=== PATIENT | male | born 1960 | race Caucasian/White ===

== ENCOUNTER → 2017-01-12 | Outpatient (CLI) | payer BC ==
[~2017-01-12] MED LIST: ASPIRIN E.C. 8181 MG PO; CELEXA20 MG PO; CELEXA40 MG PO; LIPITOR20 MG PO; LIPITOR40 MG PO; MULTIPLE VITAMI1 TAB PO; NICODERM C21 MG/PATC TOP; PRILOSEC 10MG C10 MG PO; PRILOSEC 20MG20 MG PO
== END ==
LOC: COL.RAD 15:30
DX: R10.13 Epigastric pain (principal); Z90.49 Acquired absence of other specified parts of digestive tract
CPT/HCPCS: Q9967

== ENCOUNTER 2017-07-21 08:25 | Outpatient (RCR) | payer OTHER | END 2017-07-27 14:39 | disposition still patient (30) | LOC: WSOH 08:25 | DX: S67.191A Crushing injury of left index finger, initial encounter (principal); W23.0XXA Caught, crushed, jammed, or pinched between moving objects, initial encounter; Y99.0 Civilian activity done for income or pay ==

== ENCOUNTER 2017-08-19 08:00 | Outpatient (RCR) | payer OTHER | END 2017-08-19 08:57 | disposition home or self-care (01) | LOC: WSOT 08:00 | DX: M25.642 Stiffness of left hand, not elsewhere classified (principal) ==

== ENCOUNTER → 2017-11-09 | Outpatient (CLI) | payer BC ==
[~2017-11-09] VITALS: Ht 185.4 cm; Wt 88.6 kg
[~2017-11-09] MED LIST changes: +LEXAPRO 10MG10 MG PO; +MYRBETR50MG PO
[2017-11-09 13:31] VITALS: BP 124/88; PULSE 89
[2017-11-09 14:56] VITALS: BP 127/86; PULSE 78
== END ==
LOC: COL.RAD 12:51
DX: M99.83 Other biomechanical lesions of lumbar region (principal)
CPT/HCPCS: J3301

== ENCOUNTER → 2018-03-26 | Outpatient (CLI) | payer BC | LOC: COL.RAD 07:16 | DX: D18.09 Hemangioma of other sites (principal); K76.89 Other specified diseases of liver; Z90.49 Acquired absence of other specified parts of digestive tract; M47.895 Other spondylosis, thoracolumbar region | CPT/HCPCS: Q9967 ==

== ENCOUNTER → 2018-08-19 | Outpatient (CLI) | payer BC ==
[~2018-08-19] VITALS: Ht 185.4 cm; Wt 85.8 kg
[2018-08-19 06:57] VITALS: BP 116/74; PULSE 64
[2018-08-19 07:58] VITALS: BP 122/71; PULSE 63
== END ==
LOC: COL.RAD 06:30
DX: M48.061 Spinal stenosis, lumbar region without neurogenic claudication (principal)
CPT/HCPCS: J3301

== ENCOUNTER → 2018-10-04 | Outpatient (CLI) | payer OTHER | LOC: COL.RAD 10:15 | DX: S83.241A Other tear of medial meniscus, current injury, right knee, initial encounter (principal); S83.411A Sprain of medial collateral ligament of right knee, initial encounter; M25.461 Effusion, right knee ==

== ENCOUNTER 2018-10-07 13:16 | Outpatient (RCR) | payer OTHER | END 2018-12-22 | disposition home or self-care (01) | LOC: WSOH | DX: M25.561 Pain in right knee (principal); W00.0XXA Fall on same level due to ice and snow, initial encounter; Y93.H1 Activity, digging, shoveling and raking; Y92.214 College as the place of occurrence of the external cause; Y99.0 Civilian activity done for income or pay; F17.210 Nicotine dependence, cigarettes, uncomplicated; Z79.1 Long term (current) use of non-steroidal anti-inflammatories (NSAID); Z79.899 Other long term (current) drug therapy ==

== ENCOUNTER 2018-12-03 13:00 | Outpatient (RCR) | payer OTHER | END 2018-12-09 12:22 | disposition home or self-care (01) | LOC: WSPT 13:00 | DX: S83.241A Other tear of medial meniscus, current injury, right knee, initial encounter (principal); Z96.651 Presence of right artificial knee joint ==

== ENCOUNTER → 2019-06-14 | Outpatient (CLI) | payer BC ==
[~2019-06-14] VITALS: Ht 185.4 cm; Wt 87.4 kg
[2019-06-14 07:27] VITALS: BP 137/87; PULSE 71
[2019-06-14 08:35] VITALS: BP 134/92; PULSE 71
== END ==
LOC: COL.RAD 07:00
DX: M47.816 Spondylosis without myelopathy or radiculopathy, lumbar region (principal)
CPT/HCPCS: J3301

== ENCOUNTER → 2019-10-03 | Outpatient (CLI) | payer BC | LOC: COL.PUL 07:35 | DX: J43.9 Emphysema, unspecified (principal) ==

== ENCOUNTER 2019-10-04 14:26 | Outpatient (RCR) | payer OTHER ==
[2020-01-26] MEDS ORDERED: FENTANYL 25 MCG TD (10:25)
[2020-01-26] MEDS ORDERED: ATIVAN 0.50.5 MG/TAB PO (10:26)
[2020-01-26] MEDS ORDERED: NORCO 325 MG-51 TAB PO (10:29)
== END 2019-12-27 13:14 | disposition home or self-care (01) ==
LOC: WSOH 14:26
DX: L03.90 Cellulitis, unspecified (principal); F32.9 Major depressive disorder, single episode, unspecified; E78.00 Pure hypercholesterolemia, unspecified; K21.9 Gastro-esophageal reflux disease without esophagitis; Z90.49 Acquired absence of other specified parts of digestive tract; Z98.890 Other specified postprocedural states; Y99.0 Civilian activity done for income or pay

== ENCOUNTER → 2020-01-11 | Outpatient (CLI) | payer BC | LOC: COL.RAD 07:55 | DX: M25.511 Pain in right shoulder (principal) | CPT/HCPCS: A9585; Q9967 ==

== ENCOUNTER → 2020-01-12 | Outpatient (CLI) | payer BC | LOC: COL.PUL 11-21 10:00 | DX: R06.02 Shortness of breath (principal); F17.210 Nicotine dependence, cigarettes, uncomplicated | CPT/HCPCS: J7674 ==

== ENCOUNTER 2020-01-19 14:32 | Emergency (ER) | payer BC ==
[~2020-01-19] VITALS: Ht 185.4 cm; Wt 86.4 kg
[2020-01-19 14:33] VITALS: TEMP 98.5
[2020-01-19] MEDS ORDERED: RT SPIRIVA18 MCG IH (14:46)
[2020-01-19] MEDS ORDERED: FENTANYL 12MCG TD (14:47)
[2020-01-19 15:15] LABS: BASO % 0.2 % (0.0-2.0); GRAN # 7.7 (1.4-6.5); GRAN % 75.9 % (42.2-75.2); HEMATOCRIT 41.2 % (42.0-52.0); HEMOGLOBIN 14.2 g/dl (13.5-18.0); LYMPH # 1.9 (1.2-3.4); LYMPH % 18.7 % (20.0-51.0); MEAN CELL VOLUME 93 fl (80.0-100.0); MEAN CORPUSCULAR HEMOGLOBIN 32 pg (27.0-31.0); MEAN CORPUSCULAR HGB CONC 35 g/dl (33.0-37.0); MEAN PLATELET VOLUME 10.4 fl (7.4-10.4); MONO # 0.5 (0.1-0.6); MONO % 4.9 % (1.7-9.3); PLATELET COUNT 212 K/mm3 (130-400); RED BLOOD COUNT 4.41 M/mm3 (4.20-5.60); REDCELL DISTRIBUTION WIDTH-CV 12.1 % (11.5-14.5)
[2020-01-19 16:10] LABS: ALANINE AMINOTRANSFERASE 37 U/L (4-49); ALBUMIN 4.1 gm/dL (3.5-5.0); ALKALINE PHOSPHATASE 87 U/L (50-136); ANION GAP 8 mmol/L (7-16); AST,SGOT 32 U/L (15-37); BILIRUBIN,TOTAL 0.7 mg/dL (0.0-1.0); BLOOD UREA NITROGEN 14 mg/dL (9-20); CALCIUM 9.1 mg/dL (8.4-10.2); CARBON DIOXIDE 23 mmol/L (22-30); CHLORIDE 101 mmol/L (98-107); CREATININE, serum 0.68 (0.66-1.25); GLUCOSE 105 mg/dL (74-106); POTASSIUM 3.8 mmol/L (3.4-5.0); SODIUM 132 mmol/L (137-145); TOTAL PROTEIN 7.4 gm/dL (6.4-8.2)
[2020-01-19 16:35] LABS: C-REACTIVE PROTEIN < 0.5 mg/dL (0.0-0.9)
[2020-01-19 17:06] LABS: COLLECTION METHOD CLEAN CATCH
[2020-01-19 17:14] LABS: MUCOUS Present /lpf; PH 7 (5-8); SQUAMOUS EPITHELIAL None Seen /hpf; URINE APPEARANCE Clear; URINE BACTERIA None Seen /hpf; URINE BILIRUBIN Negative (NEGATIVE); URINE BLOOD 1+ (NEGATIVE); URINE COLOR Yellow; URINE GLUCOSE Negative (NEGATIVE); URINE KETONE Negative (NEGATIVE); URINE LEUKOCYTE ESTERASE Negative (NEGATIVE); URINE NITRATE Negative (NEGATIVE); URINE PROTEIN(semi-quant) Negative (NEGATIVE); URINE RBC 0-2 /hpf; URINE UROBILINOGEN Negative (NEGATIVE)
[2020-01-19] MEDS ORDERED: ATIVAN 0.50.5 MG/TAB PO (17:29)
[2020-01-19 17:30] VITALS: BP 136/84; PULSE 79
== END 2020-01-19 17:45 | disposition home or self-care (01) ==
LOC: COL.ER 14:32
PROVIDERS: Emergency Medicine
DX: M54.5 Low back pain (principal); F32.9 Major depressive disorder, single episode, unspecified; F17.210 Nicotine dependence, cigarettes, uncomplicated; Z79.82 Long term (current) use of aspirin
CPT/HCPCS: J1170; J1885; J2060; J7030

== ENCOUNTER → 2020-01-27 | Outpatient (CLI) | payer BC ==
[~2020-01-27] VITALS: Ht 185.4 cm; Wt 88.5 kg
[~2020-01-27] MED LIST changes: +ATIVAN 0.50.5 MG/TAB PO; +FENTANYL 12MCG TD; +FENTANYL 25 MCG TD; +NORCO 325 MG-51 TAB PO; +RT SPIRIVA18 MCG IH
[2020-01-27 13:16] VITALS: BP 132/88; PULSE 82
[2020-01-27 14:40] VITALS: BP 146/90; PULSE 82
== END ==
LOC: COL.RAD 12:59
DX: M48.061 Spinal stenosis, lumbar region without neurogenic claudication (principal); G62.9 Polyneuropathy, unspecified
CPT/HCPCS: J3301

== ENCOUNTER → 2020-02-16 | Outpatient (CLI) | payer BC ==
[~2020-02-16] VITALS: Ht 185.4 cm; Wt 83.3 kg
[2020-02-16 12:13] VITALS: BP 128/79; PULSE 73
[2020-02-16 13:30] VITALS: BP 141/84; PULSE 68
--- NOTE | 2020-02-16 14:00 | NUR ---
PT TAKEN TO POV AND DRIVES HOME
== END ==
LOC: COL.RAD 11:45
DX: M51.36 Other intervertebral disc degeneration, lumbar region (principal)
CPT/HCPCS: J3301

== ENCOUNTER → 2021-04-25 | Outpatient (CLI) | payer BC ==
[~2021-04-25] VITALS: Ht 185.4 cm; Wt 86.5 kg
[~2021-04-25] MED LIST changes: +LEXAPRO20 MG PO
[2021-04-25 09:54] VITALS: BP 125/80; PULSE 64; TEMP 98.2
[2021-04-25 10:39] VITALS: BP 130/79; PULSE 60
== END ==
LOC: COL.RAD 09:19
DX: M51.36 Other intervertebral disc degeneration, lumbar region (principal)
CPT/HCPCS: J3301

== ENCOUNTER 2021-11-13 10:36 | Emergency (ER) | payer BC ==
[~2021-11-13] VITALS: Ht 185.4 cm; Wt 84.1 kg
[2021-11-13 10:40] VITALS: TEMP 98
[2021-11-13 11:32] VITALS: BP 152/74; PULSE 78
== END 2021-11-13 11:32 | disposition home or self-care (01) ==
LOC: COL.ER 10:36
DX: S61.211A Laceration without foreign body of left index finger without damage to nail, initial encounter (principal); S61.213A Laceration without foreign body of left middle finger without damage to nail, initial encounter; Z87.891 Personal history of nicotine dependence; W26.8XXA Contact with other sharp object(s), not elsewhere classified, initial encounter; Y92.59 Other trade areas as the place of occurrence of the external cause; Y99.0 Civilian activity done for income or pay

== ENCOUNTER → 2021-11-25 | Outpatient (CLI) | payer BC ==
[2021-11-25 10:29] VITALS: BP 159/80; PULSE 71; TEMP 97.1
== END ==
LOC: COL.ER 10:21
DX: Z48.02 Encounter for removal of sutures (principal)

== ENCOUNTER → 2022-02-26 | Outpatient (CLI) | payer BC ==
[~2022-02-26] VITALS: Ht 185.4 cm; Wt 85.7 kg
[~2022-02-26] MED LIST changes: +PROTONIX20 MG PO
[2022-02-26 12:50] VITALS: BP 144/90; PULSE 65; TEMP 98.2
[2022-02-26 13:40] VITALS: BP 127/86; PULSE 65
== END ==
LOC: COL.RAD 12:26
DX: M51.36 Other intervertebral disc degeneration, lumbar region (principal)
CPT/HCPCS: J3301

== ENCOUNTER → 2024-03-09 | Outpatient (CLI) | payer BC ==
[~2024-03-09] MED LIST changes: +STIOLTO RESPIMAT4 GM IH
== END ==
LOC: COL.RAD 08:59
DX: Z12.2 Encounter for screening for malignant neoplasm of respiratory organs (principal); Z87.891 Personal history of nicotine dependence